=== PATIENT | female | born 1965 | race Caucasian/White ===

== ENCOUNTER 2024-07-16 08:15 | Outpatient (CLI) | payer OTHER, MEDICAID | END 2024-07-16 08:16 | disposition home or self-care (01) | LOC: CSHMAMMO 08:15 | PROVIDERS: ATTEND Neurological Surgery | DX: M47.816 Spondylosis without myelopathy or radiculopathy, lumbar region (principal); M85.851 Other specified disorders of bone density and structure, right thigh; M85.852 Other specified disorders of bone density and structure, left thigh | CPT/HCPCS: 77080 ==

== ENCOUNTER 2025-03-27 17:17 | Observation (INO) | payer OTHER, MEDICAID ==
[2025-03-27 17:44] LABS: #Basophils 0.04 10x3/uL (0.0-0.2); #Eosinophils 0.28 10x3/uL (0.0-0.5); #Monocytes 0.49 10x3/uL (0.0-1.1); #Neutrophils 4.66 10x3/uL (1.5-8.4); %Basophils 0.5 % (0.0-2.0); %Eosinophils 3.7 % (0.0-6.0); %Lymphocytes 28.2 % (18.0-47.0); %Monocytes 6.4 % (0.0-10.0); %Neutrophils 60.9 % (40.0-75.0); Hematocrit 43.7 % (34.9-44.5); Hemoglobin 14.2 g/dL (12.0-15.5); Mean Corpuscular HGB CONC 32.5 g/dL (32.0-36.0); Mean Corpuscular Hemoglobin 30.1 pg (27.0-33.0); Mean Corpuscular Volume 92.6 fL (81.6-98.3); Mean Platelet Volume 9.2 fL (7.4-10.4); Platelet Count 300 10x3/uL (150-450); RBC Distribution Width 12.9 % (11.5-14.5); Red Blood Cell (RBC) Count 4.72 10x6/uL (3.90-5.03); White Blood Cell (WBC) Count 7.65 10x3/uL (3.5-10.5)
[2025-03-27] MEDS ORDERED: Diazepam 10 MG/2 ML SYRINGE ONE (17:52)
[2025-03-27] MEDS ORDERED: Labetalol HCl 100 MG/20 ML VIAL ONE (17:54)
[2025-03-27 17:59] LABS: ALT (SGPT) 14 U/L (Less than 34); AST (SGOT) 16 U/L (11-34); Albumin 4.7 g/dL (3.1-4.5); Alkaline Phosphatase 65 U/L (40-110); Anion Gap 12 mmol/L (10-20); BUN (Urea Nitrogen) 17 mg/dL (9.8-20.1); Bilirubin, Total 0.3 mg/dL (0.3-1.2); Calc. Creatinine Clearance 0 mL/min (70-130); Carbon Dioxide 25 mmol/L (22-29); Chloride 108 mmol/L (98-107); Estimated GFR 100; Globulin 3.2 g/dL (2.4-3.5); Glucose 104 mg/dL (70-105); Protein, Total 7.9 g/dL (6.0-8.3); Sodium 141 mmol/L (136-145)
[2025-03-27 18:05] LABS: Troponin I 0.105 ng/mL (< 0.028)
[2025-03-27] MEDS ORDERED: Morphine 2 MG/ML VIAL SLOW IVP PRN (18:21)
[2025-03-27] MEDS ORDERED: Nitroglycerin 0.4 MG TAB (25 Tab Bottle) SL PRN (18:21)
[2025-03-27] MEDS ORDERED: Melatonin 3 MG TAB PO PRN (18:21)
[2025-03-27] MEDS ORDERED: Ondansetron ODT 4 MG TAB PO PRN (18:21)
[2025-03-27] MEDS ORDERED: Ondansetron PF 4 MG/2 ML Vial IVP PRN (18:21)
[2025-03-27] MEDS ORDERED: Clopidogrel Bisulfate 75 MG TAB ONE (18:25)
[2025-03-27] MEDS ORDERED: fentaNYL 50 mcg/mL 1 mL Vial ONE (18:26)
[2025-03-27] MEDS ORDERED: Heparin 25,000 units/D5W 500 ML ONE (18:26)
[2025-03-27] MEDS ORDERED: Nitroglycerin 2% Ointment 1 INCH/1 GM Packet ONE (18:27)
[2025-03-27] MEDS ORDERED: Famotidine 20 MG TAB ONE (18:29)
[2025-03-27] MEDS ORDERED: Electrolyte Replacement Protocol 1 EACH FS SCH (18:30)
[2025-03-27] MEDS ORDERED: Senokot S 8.6-50 MG TAB PO PRN (18:56)
[2025-03-27] MEDS ORDERED: Moisturizing Cream (Eucerin) 113 GM JAR TOP PRN (18:56)
[2025-03-27] MEDS ORDERED: Calcium Carbonate 500 MG ChewTAB PO PRN (18:56)
[2025-03-27] MEDS ORDERED: Sodium Chloride 0.65% Nasal 44 ML BOT EA NARE PRN (18:56)
[2025-03-27] MEDS ORDERED: diphenhydrAMINE 25 MG CAP PO PRN (18:56)
[2025-03-27] MEDS ORDERED: Artificial Tear Ophth Sol 15 ML BOT EA EYE PRN (18:56)
[2025-03-27 18:59] LABS: Hematocrit 43.8 % (34.9-44.5); Hemoglobin 13.9 g/dL (12.0-15.5); Platelet Count 304 10x3/uL (150-450)
[2025-03-27] MEDS ORDERED: Ipratropium/Albuterol 3 ML NEB NEB PRN (19:04)
[2025-03-27 19:19] LABS: Troponin I 0.103 ng/mL (< 0.028)
[2025-03-27 20:02] VITALS: BMI 27.8
[2025-03-27] MEDS: Famotidine 20 MG TAB PO SCH (20:40)
[2025-03-27] MEDS: Atorvastatin Calcium 40 MG TAB PO SCH (20:40)
[2025-03-27] MEDS: Nicotine 14 MG PATCH TD SCH (20:40)
[2025-03-27] MEDS: Aspirin 81 mg Enteric Coated Tablet PO SCH (20:40)
[2025-03-27] MEDS: fentaNYL 50 mcg/mL 1 mL Vial SLOW IVP PRN (20:41)
[2025-03-27] MEDS: Polyethylene Glycol 3350 17 GM Packet PO SCH (20:52)
[2025-03-27] MEDS ORDERED: Famotidine/PF 20 mg/2ml Vial SLOW IVP PRN (21:00)
[2025-03-27 22:00] LABS: Troponin I 0.096 ng/mL (< 0.028)
[2025-03-27] MEDS: clonazePAM 0.5 MG TAB PO PRN (23:18)
[2025-03-27] MEDS: traZODone HCl 50 MG TAB PO SCH ×2 (23:18→23:30)
[2025-03-27] MEDS: Dapagliflozin Propanediol 10 MG TAB PO SCH ×2 (23:19→23:30)
[2025-03-28 01:23] LABS: #Basophils Less than 0.03 10x3/uL (0.0-0.2); #Eosinophils 0.28 10x3/uL (0.0-0.5); #Monocytes 0.43 10x3/uL (0.0-1.1); #Neutrophils 2.86 10x3/uL (1.5-8.4); %Basophils 0.3 % (0.0-2.0); %Eosinophils 4.9 % (0.0-6.0); %Lymphocytes 36.9 % (18.0-47.0); %Monocytes 7.5 % (0.0-10.0); %Neutrophils 50.1 % (40.0-75.0); Hematocrit 38.5 % (34.9-44.5); Hemoglobin 12.4 g/dL (12.0-15.5); Mean Corpuscular HGB CONC 32.2 g/dL (32.0-36.0); Mean Corpuscular Hemoglobin 30.3 pg (27.0-33.0); Mean Corpuscular Volume 94.1 fL (81.6-98.3); Mean Platelet Volume 9.1 fL (7.4-10.4); Platelet Count 255 10x3/uL (150-450); Red Blood Cell (RBC) Count 4.09 10x6/uL (3.90-5.03); White Blood Cell (WBC) Count 5.72 10x3/uL (3.5-10.5)
[2025-03-28 01:36] LABS: Anion Gap 14 mmol/L (10-20); BUN (Urea Nitrogen) 15 mg/dL (9.8-20.1); Calc. Creatinine Clearance 97 mL/min (70-130); Calcium 9.2 mg/dL (7.8-10.44); Carbon Dioxide 23 mmol/L (22-29); Cardiac Risk 2.6 (Less than 4.5); Chloride 110 mmol/L (98-107); Cholesterol 126 mg/dl (< 200 Desired); Estimated GFR 95; Glucose 149 mg/dL (70-105); HDL Cholesterol 48 mg/dL (>60 Neg Risk); LDL Cholesterol, Calculated 38 mg/dL; Potassium 3.6 mmol/L (3.5-5.1); Sodium 143 mmol/L (136-145); Triglycerides 202 mg/dL (Less than 150)
[2025-03-28] MEDS: Heparin 25,000 units/D5W 500 ML IVPB SCH (02:02)
[2025-03-28] MEDS: Heparin 10,000 UNITS/ 10 ML VIAL SLOW IVP SCH (02:18)
[2025-03-28] MEDS: D5 1/2 NS w/20 mEq KCL 1,000 ML IV SCH (06:38)
[2025-03-28] MEDS ORDERED: Dapagliflozin Propanediol 10 MG TAB PO SCH (09:00)
[2025-03-28] MEDS ORDERED: Metoprolol Succinate XL 25 MG ER.TAB PO SCH (09:00)
[2025-03-28] MEDS: Clopidogrel Bisulfate 75 MG TAB PO SCH (09:11)
[2025-03-28] MEDS: Isosorbide Mononitrate 30 MG ER.TAB.S PO SCH (09:11)
[2025-03-28] MEDS: Carvedilol 6.25 MG TAB PO SCH (09:11)
[2025-03-28] MEDS: Ranolazine ER 500 MG TAB PO SCH (09:11)
[2025-03-28] MEDS: Aspirin 81 mg Enteric Coated Tablet PO SCH (09:11)
[2025-03-28] MEDS: Polyethylene Glycol 3350 17 GM Packet PO SCH (09:12)
[2025-03-28 09:13] VITALS: BP 120/77
[2025-03-28] MEDS: Acetaminophen 325 MG TAB PO PRN (09:19)
[2025-03-28 10:06] VITALS: TEMP 97.8
[2025-03-28 12:44] LABS: Hemoglobin A1c 6.1 % (4.0-6.0)
[2025-03-28] MEDS ORDERED: Carvedilol 6.25 MG TAB PO SCH (17:00)
== END 2025-03-28 10:01 | disposition home or self-care (01) ==
LOC: CSHERS 17:17 → CSHTELE 18:21
PROVIDERS: ADMIT Family Medicine; ATTEND Internal Medicine
DX: I21.4 Non-ST elevation (NSTEMI) myocardial infarction (principal); I25.10 Atherosclerotic heart disease of native coronary artery without angina pectoris; I25.5 Ischemic cardiomyopathy; I71.40 Abdominal aortic aneurysm, without rupture, unspecified; I11.0 Hypertensive heart disease with heart failure; I50.22 Chronic systolic (congestive) heart failure; E78.5 Hyperlipidemia, unspecified; K21.9 Gastro-esophageal reflux disease without esophagitis; J44.9 Chronic obstructive pulmonary disease, unspecified; F17.200 Nicotine dependence, unspecified, uncomplicated; Z86.73 Personal history of transient ischemic attack (TIA), and cerebral infarction without residual deficits; Z87.59 Personal history of other complications of pregnancy, childbirth and the puerperium; Z95.1 Presence of aortocoronary bypass graft; Z95.5 Presence of coronary angioplasty implant and graft; Z90.710 Acquired absence of both cervix and uterus; Z90.89 Acquired absence of other organs; Z88.5 Allergy status to narcotic agent; Z88.0 Allergy status to penicillin; Z88.6 Allergy status to analgesic agent; Z88.2 Allergy status to sulfonamides; Z79.02 Long term (current) use of antithrombotics/antiplatelets; Z79.82 Long term (current) use of aspirin; Z79.899 Other long term (current) drug therapy
CPT/HCPCS: 71045; 80048; 80053; 80061; 83036; 83880; 84484 ×2; 85014; 85018; 85025 ×2; 85049; 85730 ×3; 93005; 96376 ×2; G0378 ×3; J1644 ×3; J3010 ×2; J3360; J3480; 36415; 93010; 96374; 96375

== ENCOUNTER 2025-05-29 09:03 | Outpatient (CLI) | payer OTHER, MEDICAID | END 2025-05-29 09:04 | disposition home or self-care (01) | LOC: CSHSLEEP 09:03 | PROVIDERS: ATTEND Family Medicine | DX: G47.33 Obstructive sleep apnea (adult) (pediatric) (principal); F32.A Depression, unspecified; F41.9 Anxiety disorder, unspecified; J44.9 Chronic obstructive pulmonary disease, unspecified; I10 Essential (primary) hypertension; R06.83 Snoring | CPT/HCPCS: 95810 ==